=== PATIENT | female | born 1985 | race Caucasian/White ===

== ENCOUNTER 2018-03-14 10:20 | Emergency (ER) | payer BC ==
[~2018-03-14] VITALS: Ht 170.2 cm; Wt 60.0 kg
[2018-03-14] MEDS ORDERED: IOHEXOL 350 MG/ML 10 ML VIAL (for RAD DIAG) IVCONTRAST ONE (10:21)
[2018-03-14 10:37] VITALS: BP 127/64; PULSE 72; RESP 18; TEMP 98.2; O2SAT 100
[2018-03-14] MEDS ORDERED: SODIUM CHLOR 0.9% 1000 ML INJ 1,000 ML IV SCH (10:57)
[2018-03-14] MEDS ORDERED: AYGE5TAB PO (10:59)
[2018-03-14] MEDS ORDERED: SODIUM CHLORIDE 0.9% FLUSH 10 ML FLUSH IV FLUSH PRN (11:00)
[2018-03-14] MEDS ORDERED: KETOROLAC TROMETHAMINE 30 MG/ML (IVP) VIAL IV PUSH ONE (11:00)
[2018-03-14] MEDS ORDERED: ONDANSETRON ODT 4 MG TAB PO ONE (11:00)
[2018-03-14 11:04] VITALS: BP 124/69; PULSE 58; RESP 17; O2SAT 100
[2018-03-14 11:15] VITALS: BP 124/69; PULSE 58; RESP 17; O2SAT 100
[2018-03-14 11:32] LABS: BASOPHIL % 0.6 % (0.0-2.0); EOSINOPHIL % 0.4 % (0.0-4.0); HEMATOCRIT 36.1 % (35.0-46.0); HEMOGLOBIN 12.5 GM/DL (11.6-15.3); LYMPH % 36.3 % (9.0-44.0); LYMPHOCYTE # 1.9 TH/MM3 (1.0-4.8); MEAN CELL VOLUME 86.3 FL (80.0-100.0); MEAN CORPUSCULAR HEMOGLOBIN 29.9 PG (27.0-34.0); MEAN CORPUSCULAR HGB CONC 34.7 % (32.0-36.0); MEAN PLATELET VOLUME 7.7 FL (7.0-11.0); MONO % 5.8 % (0.0-8.0); MONOCYTE # 0.3 TH/MM3 (0-0.9); NEUT % 56.9 % (16.0-70.0); PLATELET COUNT 244 TH/MM3 (150-450); RED BLOOD COUNT 4.18 MIL/MM3 (4.00-5.30); RED CELL DISTRIBUTION WIDTH 13.5 % (11.6-17.2); WHITE BLOOD COUNT 5.2 TH/MM3 (4.0-11.0)
[2018-03-14 11:42] LABS: INTERNATIONAL NORMALIZED RATIO 1.1 RATIO; PROTHROMBIN TIME - PATIENT 10.8 SEC (9.8-11.6)
[2018-03-14 12:03] LABS: ALBUMIN 4.1 GM/DL (3.4-5.0); AST (GOT) 21 U/L (15-37); BICARBONATE 26.9 MEQ/L (21.0-32.0); BLOOD UREA NITROGEN 10 MG/DL (7-18); CALCIUM 8.8 MG/DL (8.5-10.1); CHLORIDE 107 MEQ/L (98-107); CREATININE 0.81 MG/DL (0.50-1.00); GLOMERULAR FILTRATION RATE 82 ML/MIN (>89); GLUCOSE,RANDOM 89 MG/DL (74-106); SODIUM (NA) 142 MEQ/L (136-145)
[2018-03-14 12:07] LABS: ALKALINE PHOSPHATASE 43 U/L (45-117); ALT (GPT) 25 U/L (10-53); TOTAL BILIRUBIN ADULT 0.5 MG/DL (0.2-1.0); TOTAL PROTEIN 7.5 GM/DL (6.4-8.2)
--- NOTE | 2018-03-14 12:15 | RADRPT ---
EXAM DATE/TIME: 03/14/2018 11:27 [place] COMPARISON: No previous studies available for comparison. INDICATIONS : Umbilical abdomen pain with nausea, vomiting and diarrhea today. IV CONTRAST: 95 cc Omnipaque 350 (iohexol) IV ORAL CONTRAST: No oral contrast ingested. RADIATION DOSE: 8.54 CTDIvol (mGy) MEDICAL HISTORY : endometriosis SURGICAL HISTORY : Colon resection. Appendectomy. Hysterectomy. ENCOUNTER: Initial ACUITY: 1 day PAIN SCALE: 7/10 LOCATION: umbilical abdomen TECHNIQUE: Volumetric scanning of the abdomen and pelvis was performed. Using automated exposure control and ad justment of the mA and/or kV according to patient size, radiation dose was kept as low as reasonably achievable to obtain optimal diagnostic quality images. DICOM format image data is available electro nically for review and comparison. FINDINGS: LOWER LUNGS: The visualized lower lungs are clear. LIVER: Homogeneous density without lesion. There is no dilation of the biliary tree. No calcified gallston es. SPLEEN: Normal size without lesion. PANCREAS: Within normal limits. KIDNEYS: Normal in size and shape. There is no mass, stone or hydronephrosis. ADRENAL GLANDS: There is a 1.8 x 2.6 x 2.9 cm right suprarenal mass, likely adrenal in etiology with indeterminate en hancement. Left adrenal gland is normal in appearance. VASCULAR: There is no aortic aneurysm. BOWEL/MESENTERY: The stomach, small bowel, and colon demonstrate no acute abnormality. Very trace free fluid in the pe lvis. ABDOMINAL WALL: Within normal limits. RETROPERITONEUM: There is no lymphadenopathy. BLADDER: No wall thickening or mass. REPRODUCTIVE: There is a 2.8 x 2.3 x 3.2 cm peripherally enhancing low density mass in the right anterior inferior pelvis. INGUINAL: There is no lymphadenopathy or hernia. MUSCULOSKELETAL: Within normal limits for patient age. CONCLUSION: 1. Patient is status post appendectomy, hysterectomy and apparent partial colectomy. 2. 2.8 x 2.3 x 3.2 cm peripherally enhancing low-density mass in the right anterior-inferior pelvis. This is nonspecific given the atypical location. Differential considerations include anteriorly displ aced ovary, endometriosis (does patient have cyclical pain?), resolving hematoma and less likely absc ess. 3. 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 This can be further evaluated with MRI adrenal mass protocol on outpatient basis as clinically ind icated. Donaldo Oropeza MD on March 14, 2018 at 12:02 Board Certified Radiologist. This report was verified electronically.
[2018-03-14 12:28] LABS: BILIRUBIN, URINE NEG (NEG); BLOOD, URINE NEG (NEG); GLUCOSE,URINE NEG (NEG); KETONE, URINE 80 mg/dL (NEG); MUCUS URINE MANY /lpf (OCC); NITRITE,URINE NEG (NEG); SQUAMOUS EPITHELIAL CELL URINE 9 /hpf (0-5); URINE COLOR YELLOW (YELLW/STRAW); URINE LEUKOCYTE ESTERASE NEG (NEG)
[2018-03-14] MEDS ORDERED: ACETAMINOPHEN/HYDROcodone 325 MG/5 MG TAB PO ONE (13:00)
[2018-03-14] MEDS ORDERED: NORC5TAB PO (13:11)
--- NOTE | 2018-03-14 13:11 | PD ---
HPI Chief Complaint: Abdominal Pain Time Seen by Provider: 10:50 Travel History International Travel<30 days: No Contact w/Intl Traveler<30days: No Traveled to known affect area: No History of Present Illness HPI Patient is a 32 year old female who comes in complaining of abdominal pain. She says the pain started last night and got worse today. She says she has had nausea, but no vomiting. She reports one episode of diarrhea this morning. She says that she had to leave work early due to the pain. She did not take anything for the pain. She says she has had a lot of issues with endometriosis and has had her uterus removed. She says she is scheduled to have her ovaries removed later in the year. She says this pain is similar to endometriosis pain in the past. Severity is mild. PFSH Past Medical History Medical other: Yes (ENDOMETRIOSIS) Tetanus Vaccination: Unknown Influenza Vaccination: No ?: Not Ovarian Cysts: Yes Past Surgical History Abdominal Surgery: Yes (PARTIAL BOWEL REMOVAL) Appendectomy: Yes Hysterectomy: Yes Other Surgery: Yes (ENDOMETRIOSIS SX) Social History Alcohol Use: No Tobacco Use: No Substance Use: No Allergies-Medications (Allergen,Severity, Reaction): Coded Allergies: No Known Allergies (Unverified , 03/14/18) Reported Meds & Prescriptions Reported Meds & Active Scripts Active Reported Aygestin (Norethindrone Acetate) 5 Mg Tab 5 Mg PO HS Review of Systems Except as stated in HPI: all other systems reviewed are Neg General / Constitutional: No: Fever, Chills HENT: No: Headaches, Lightheadedness Cardiovascular: No: Chest Pain or Discomfort Respiratory: No: Shortness of Breath, Wheezing Gastrointestinal: Positive: Nausea, Abdominal Pain Genitourinary: No: Dysuria Musculoskeletal: No: Myalgias, Edema Skin: No Rash, No Change in Pigmentation Neurologic: No: Weakness, Dizziness Physical Exam Narrative GENERAL: Awake and alert, in no acute distress. SKIN: Focused skin assessment warm/dry. HEAD: Atraumatic. Normocephalic. EYES: Pupils equal and round. No scleral icterus. ENT: Mucous membranes pink and moist. NECK: Trachea midline. No JVD. CARDIOVASCULAR: Regular rate and rhythm. No murmur appreciated. RESPIRATORY: No accessory muscle use. Clear to auscultation. Breath sounds equal bilaterally. GASTROINTESTINAL: Abdomen soft, nondistended. Mild tenderness across the upper abdomen. No rebound or guarding. MUSCULOSKELETAL: No obvious deformities. No clubbing. No cyanosis. No edema. NEUROLOGICAL: Awake and alert. No obvious cranial nerve deficits. Motor grossly within normal limits. Normal speech. PSYCHIATRIC: Appropriate mood and affect; insight and judgment normal. Data Data Last Documented VS Vital Signs Date Time Temp Pulse Resp B/P (MAP) Pulse Ox O2 Delivery O2 Flow Rate FiO2 03/14/18 11:15 58 17 124/69 (87) 100 Room Air 03/14/18 10:37 98.2 Orders Orders Complete Blood Count With Diff (03/14/18 10:57) Comprehensive Metabolic Panel (03/14/18 10:57) Lipase (03/14/18 10:57) Prothrombin Time / Inr (Pt) (03/14/18 10:57) Act Partial Throm Time (Ptt) (03/14/18 10:57) Urinalysis - C+S If Indicated (03/14/18 10:57) Ct Abd/Pel W Iv Contrast(Rout) (03/14/18 10:57) Iv Access Insert/Monitor (03/14/18 10:57) Ecg Monitoring (03/14/18 10:57) Oximetry (03/14/18 10:57) Sodium Chlor 0.9% 1000 Ml Inj (Ns 1000 M (03/14/18 10:57) Sodium Chloride 0.9% Flush (Ns Flush) (03/14/18 11:00) Ondansetron Odt (Zofran Odt) (03/14/18 11:00) Ketorolac Inj (Toradol Inj) (03/14/18 11:00) Iohexol 350 Inj (Omnipaque 350 Inj) (03/14/18 10:21) Acetamin-Hydrocod 325-5 Mg ([place] 5-325 (03/14/18 13:00) Labs Laboratory Tests Test 03/14/18 11:14 03/14/18 11:45 White Blood Count 5.2 TH/MM3 Red Blood Count 4.18 MIL/MM3 Hemoglobin 12.5 GM/DL Hematocrit 36.1 % Mean Corpuscular Volume 86.3 FL Mean Corpuscular Hemoglobin 29.9 PG Mean Corpuscular Hemoglobin Concent 34.7 % Red Cell Distribution Width 13.5 % Platelet Count 244 TH/MM3 Mean Platelet Volume 7.7 FL Neutrophils (%) (Auto) 56.9 % Lymphocytes (%) (Auto) 36.3 % Monocytes (%) (Auto) 5.8 % Eosinophils (%) (Auto) 0.4 % Basophils (%) (Auto) 0.6 % Neutrophils # (Auto) 3.0 TH/MM3 Lymphocytes # (Auto) 1.9 TH/MM3 Monocytes # (Auto) 0.3 TH/MM3 Eosinophils # (Auto) 0.0 TH/MM3 Basophils # (Auto) 0.0 TH/MM3 CBC Comment DIFF FINAL Differential Comment Prothrombin Time 10.8 SEC Prothromb Time International Ratio 1.1 RATIO Activated Partial Thromboplast Time 26.2 SEC Blood Urea Nitrogen 10 MG/DL Creatinine 0.81 MG/DL Random Glucose 89 MG/DL Total Protein 7.5 GM/DL Albumin 4.1 GM/DL Calcium Level 8.8 MG/DL Alkaline Phosphatase 43 U/L Aspartate Amino Transf (AST/SGOT) 21 U/L Alanine Aminotransferase (ALT/SGPT) 25 U/L Total Bilirubin 0.5 MG/DL Sodium Level 142 MEQ/L Potassium Level 3.8 MEQ/L Chloride Level 107 MEQ/L Carbon Dioxide Level 26.9 MEQ/L Anion Gap 8 MEQ/L Estimat Glomerular Filtration Rate 82 ML/MIN Lipase 156 U/L Urine Color YELLOW Urine Turbidity CLEAR Urine pH 6.0 Urine Specific [place] GREATER THAN 1.050 Urine Protein 30 mg/dL Urine Glucose (UA) NEG mg/dL Urine Ketones 80 mg/dL Urine Occult Blood NEG Urine Nitrite NEG Urine Bilirubin NEG Urine Urobilinogen LESS THAN 2.0 MG/DL Urine Leukocyte Esterase NEG Urine RBC LESS THAN 1 /hpf Urine WBC 1 /hpf Urine Squamous Epithelial Cells 9 /hpf Urine Mucus MANY /lpf Microscopic Urinalysis Comment CULT NOT INDICATED MDM Medical Decision Making Medical Screen Exam Complete: Yes Emergency Medical Condition: Yes Differential Diagnosis UTI vs gastritis vs cholecystics vs pancreatitis Narrative Course Patient is a 32-year-old female comes in complaining of abdominal pain. Exam shows mild tenderness across the upper abdomen. IV established, labs sent. Labs show no acute abnormalities. CT abdomen and pelvis performed shows an area of likely endometriosis as well as an adrenal mass. Outpatient MRI follow- up is recommended. Patient is informed of these results. She says she can have this done at home. She was given IV fluids, Toradol, Zofran. Given a [place] for continued pain. Last 24 hours Impressions Abdomen/Pelvis CT 03/14/18 1057 Signed Impressions: Service Date/Time: Wednesday, March 14, 2018 11:27 - CONCLUSION: 1. Patient is status post appendectomy, hysterectomy and apparent partial colectomy. 2. 2.8 x 2.3 x 3.2 cm peripherally enhancing low-density mass in the right anterior-inferior pelvis. This is nonspecific given the atypical location. Differential considerations include anteriorly displaced ovary, endometriosis (does patient have cyclical pain?), resolving hematoma and less likely abscess. 3. 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 This can be further evaluated with MRI adrenal mass protocol on outpatient basis as clinically indicated. Donaldo Oropeza MD Patient will be discharged with a prescription for [place]. She is encouraged to have the MRI as soon as possible. Advised return to the ED as needed for any worsening symptoms. Diagnosis Primary Impression: Abdominal pain Qualified Codes: R10.13 - Epigastric pain Patient Instructions: Abdominal Pain (ED), General Instructions Additional Instructions: Take Ibuprofen as needed for pain, take [place] for severe pain. Follow up with your doctor. You have a mass on your right adrenal gland that requires an MRI for further classification. Return to the ED as needed for any worsening symptoms. Scripts Hydrocodone-Acetaminophen ([place]) 5 Mg-325 Mg Tab 1 TAB PO Q6H Y for PAIN, #10 TAB 0 Refills Prov: Lori Apple MD 03/14/18 Disposition: 01 DISCHARGE HOME Condition: Stable Lori Apple MD March 14, 2018 13:11
[2018-03-14 13:46] VITALS: BP 125/82
== END 2018-03-14 13:47 | disposition home or self-care (01) ==
LOC: NEPE 10:20
DX: R10.13 Epigastric pain (principal); E27.9 Disorder of adrenal gland, unspecified; Z90.710 Acquired absence of both cervix and uterus; N80.9 Endometriosis, unspecified
CPT/HCPCS: 74177; 80053; 81001; 83690; 85025; 85610; 85730; 96361; 96374; 99285; J1885; J7030; Q9967